=== PATIENT | female | born 1995 | race African-American/Black ===

== ENCOUNTER 2017-01-18 16:54 | Emergency (ER) | payer MEDICAID ==
[~2017-01-18] VITALS: Ht 154.9 cm; Wt 69.0 kg
[2017-01-18 16:56] VITALS: BP 103/65; PULSE 70; RESP 15; TEMP 99; O2SAT 98
== END 2017-01-18 20:32 | disposition left against medical advice (07) ==
LOC: NED 16:54
DX: R51 Headache (principal); Z53.21 Procedure and treatment not carried out due to patient leaving prior to being seen by health care provider
CPT/HCPCS: 99281